=== PATIENT | female | born 1985 | race American Indian/Alaskan Native ===

== ENCOUNTER 2021-09-01 20:24 | Emergency (ER) | payer SELFPAY ==
[2021-09-01 21:33] VITALS: BP 144/89
[2021-09-01] MEDS ORDERED: ASPIRIN 81 MG TAB CHEW PO ONE (22:37)
[2021-09-01] MEDS ORDERED: MECLIZINE 25 MG TAB PO ONE (22:37)
[2021-09-01 23:55] LABS: Basophils % (Auto) 0.4 % (0.0-1.8); Eosinophils # (Auto) 0.1 K/mm3 (0.0-0.4); Eosinophils % (Auto) 1.3 % (0.0-4.3); Hematocrit 36.5 % (30.3-42.9); Lymphocytes # (Auto) 3.1 K/mm3 (1.2-5.4); Mean Corpuscular HGB Conc 33 % (30-34); Mean Corpuscular Volume 76 fl (79-97); Monocytes # (Auto) 0.6 K/mm3 (0.0-0.8); Monocytes % (Auto) 7.2 % (0.0-7.3); Platelet Count 329 K/mm3 (140-440); Red Blood Count 4.79 M/mm3 (3.65-5.03); Red Cell Distribution Width 15.1 % (13.2-15.2)
--- NOTE | 2021-09-02 00:03 | XRay Report ---
CHEST 2 VIEWS INDICATION / CLINICAL INFORMATION: Nausea, fever, blurred vision, dizziness, altered mental status STUDY TIME: 5 COMPARISON: None available. FINDINGS: SUPPORT DEVICES: None HEART / MEDIASTINUM: No significant abnormality. LUNGS / PLEURA: No significant acute pulmonary or pleural abnormality. No pneumothorax. ADDITIONAL FINDINGS: No significant additional findings. Signer Name: Edy Scherer MD Signed: 09/01/2021 11:58 PM Workstation Name: [id number]
[2021-09-02 00:24] LABS: Alanine Aminotransferase 12 units/L (7-56); Albumin 4.2 g/dL (3.9-5); Blood Urea Nitrogen 14 mg/dL (7-17); Calcium 9.5 mg/dL (8.4-10.2); Hemolysis Index 6
[2021-09-02 00:25] LABS: BUN/Creatinine Ratio 20
--- NOTE | 2021-09-02 00:46 | Emergency Department Report ---
ED Dizziness HPI - General Chief Complaint: Dizziness Stated Complaint: DIZZIY/BLURRED VISION/HEADACHE Source: patient Mode of arrival: Ambulatory Limitations: No Limitations - History of Present Illness Initial Comments: Patient is a 35-year-old -[place] female with a history of vertigo who presents to the ED with acute onset persistent lightheadedness, generalized wea kness, dizziness with nausea and headache for the last 3 days, worse in the last 24 hours. Patient states that she usually takes Dramamine for her chronic vertigo symptoms and that this usually helps resolve the symptoms but that in the last 3 days, despite taking the medication the symptoms have been persistent and that when ambulating she feels off balance. Patient also complains of anterior chest wall pain intermittently with nausea. Patient denies syncope, shortness of breath, vomiting, diarrhea, change in vision, seizures, sore throat, nasal and sinus congestion, fever and chills and cough. MD Complaint: dizziness, lightheadedness, other (headache, generalized weakness) -: days(s) (3) Timing: gradual onset, intermittent, waxing/waning Description: sense of movement, lightheadedness, off-balance History of Same: No History of Trauma: No Severity: moderate Improves With: remaining still Worsens With: movement, exertion Associated Symptoms: denies other symptoms, malaise, weakness. denies: ataxia, chest pain, confusion, cough, diaphoresis, fever/chills, loss of appetite, rash, seizure, shortness of breath, syncope - Related Data Previous Rx's Medication Instructions Recorded Last Taken Type Butalb/Acetamin/Caff 50-325-40 1 - 2 tab PO Q6HR PRN #12 tab 09/02/21 Unknown Rx [Fioricet 50-325-40] Ibuprofen [Motrin] 800 mg PO Q8HR PRN #30 tablet 09/02/21 Unknown Rx Meclizine [Antivert] 25 mg PO TID PRN #30 tab 09/02/21 Unknown Rx Allergies Allergy/AdvReac Type Severity Reaction Status Date / Time No Known Allergies Allergy Verified 09/01/21 21:33 ED Review of Systems ROS: Stated complaint: DIZZIY/BLURRED VISION/HEADACHE Other details as noted in HPI Constitutional: denies: chills, fever Eyes: denies: eye pain, eye discharge, vision change ENT: denies: ear pain, throat pain Respiratory: denies: cough, shortness of breath, wheezing Cardiovascular: other (Lightheadedness). denies: chest pain, palpitations Endocrine: no symptoms reported Gastrointestinal: nausea. denies: abdominal pain, vomiting, diarrhea Genitourinary: denies: urgency, dysuria, discharge Musculoskeletal: denies: back pain, joint swelling, arthralgia Skin: denies: rash, lesions Neurological: vertigo, other (Lightheadedness and dizziness). denies: headache, weakness, numbness, paresthesias, confusion Psychiatric: denies: anxiety, depression Hematological/Lymphatic: denies: easy bleeding, easy bruising ED Past Medical Hx - Past Medical History Previous Medical History?: Yes Additional medical history: Vertigo - Surgical History Past Surgical History?: No - Social History Smoking Status: Never Smoker Substance Use Type: Alcohol - Medications Home Medications: Home Medications Medication Instructions Recorded Confirmed Last Taken Type Butalb/Acetamin/Caff 50-325-40 1 - 2 tab PO Q6HR PRN #12 tab 09/02/21 Unknown Rx [Fioricet 50-325-40] Ibuprofen [Motrin] 800 mg PO Q8HR PRN #30 tablet 09/02/21 Unknown Rx Meclizine [Antivert] 25 mg PO TID PRN #30 tab 09/02/21 Unknown Rx ED Physical Exam - General Limitations: No Limitations General appearance: alert, in no apparent distress - Head Head exam: Present: atraumatic, normocephalic, normal inspection - Eye Eye exam: Present: normal appearance, PERRL, EOMI Pupils: Present: normal accommodation - ENT ENT exam: Present: normal exam, normal orophraynx, mucous membranes moist, TM's normal bilaterally, normal external ear exam - Neck Neck exam: Present: normal inspection, full ROM. Absent: tenderness, lymphadenopathy - Respiratory Respiratory exam: Present: normal lung sounds bilaterally. Absent: respiratory distress, wheezes, rales, rhonchi, chest wall tenderness, accessory muscle use, prolonged expiratory - Cardiovascular Cardiovascular Exam: Present: regular rate, normal rhythm, normal heart sounds. Absent: systolic murmur, diastolic murmur, rubs, gallop - GI/Abdominal GI/Abdominal exam: Present: soft, normal bowel sounds. Absent: tenderness, guarding, rebound, hyperactive bowel sounds, hypoactive bowel sounds, mass - Extremities Exam Extremities exam: Present: normal inspection, full ROM, normal capillary refill. Absent: tenderness - Back Exam Back exam: Present: normal inspection, full ROM. Absent: tenderness, CVA tenderness (R), CVA tenderness (L), muscle spasm, paraspinal tenderness, vertebral tenderness - Neurological Exam Neurological exam: Present: alert, oriented X3, CN II-XII intact, normal gait, reflexes normal - Psychiatric Psychiatric exam: Present: normal affect, normal mood, anxious - Skin Skin exam: Present: warm, dry, intact, normal color. Absent: rash ED Course Vital Signs 09/01/21 21:31 Temperature 98.6 F Pulse Rate 74 Respiratory 18 Rate Blood Pressure 144/89 O2 Sat by Pulse 98 Oximetry ED Medical Decision Making - Lab Data Result diagrams: 09/01/21 23:27 09/01/21 23:27 - Radiology Data Radiology results: report reviewed, image reviewed - Medical Decision Making This is a 35-year-old -[place] female with a history of vertigo who presents to the ED with acute onset persistent lightheadedness, generalized weakness, dizziness with nausea and headache for the last 3 days, worse in the last 24 hours. Patient states that she usually takes Dramamine for her chronic vertigo symptoms and that this usually helps resolve the symptoms but that in the last 3 days, despite taking the medication the symptoms have been persistent and that when ambulating she feels off balance. Patient also complains of anterior chest wall pain intermittently with nausea. In the ED, patient is alert and oriented x3 and is not in any distress. Patient was treated in the ED for nausea and vomiting and vertigo. Chest x-ray showed no acute cardiopulmonary abnormalities or pneumonitis. 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 All lab test results were reviewed and are all nonactionable. All lab test results were reviewed and are all nonactionable. On reevaluation, patient felt better and was discharged home on medication. Patient was advised to return to the ED immediately if symptoms get worse. Patient was otherwise advised to follow-up with her primary care physician in 7 to 10 days for reevaluation. - Differential Diagnosis Vertigo; sinusitis; pneumonia; ACS; dehydration; Critical care attestation.: If time is entered above; I have spent that time in minutes in the direct care of this critically ill patient, excluding procedure time. ED Disposition Clinical Impression: Dizziness and giddiness, Intermittent lightheadedness Disposition: 01 HOME / SELF CARE / HOMELESS Is pt being admited?: No Does the pt Need Aspirin: No Condition: Stable Instructions: Near-Syncope, [id number], Motion Sickness, [id number], Dizziness, [id number] Additional Instructions: All lab test results were reviewed and are all nonactionable. Chest x-ray showed no acute cardiopulmonary abnormalities or pneumonitis. Therefore take medications with food, drink plenty of fluids and follow-up with your primary care physician in 7 to 10 days for reevaluation. Return to the ED immediately if symptoms get worse. Prescriptions: Meclizine [Antivert] 25 mg PO TID PRN #30 tab PRN Reason: Vertigo Butalb/Acetamin/Caff 50-325-40 [Fioricet 50-325-40] 1 - 2 tab PO Q6HR PRN #12 tab PRN Reason: Headache Ibuprofen [Motrin] 800 mg PO Q8HR PRN #30 tablet PRN Reason: Pain , Severe (7-10) Referrals: NANO PIERSON MD [Primary Care Provider] - 3-5 Days Time of Disposition: 01:28 Print Language: YORUBA
== END 2021-09-02 01:27 | disposition home or self-care (01) ==
LOC: ED 20:24
DX: R42 Dizziness and giddiness (principal); Z72.89 Other problems related to lifestyle; Z79.899 Other long term (current) drug therapy
CPT/HCPCS: 36415; 71046; 80053; 84484; 85025; 93005; 99283